=== PATIENT | female | born 1950 ===

== ENCOUNTER 2017-04-20 03:37 | Emergency (ER) | payer MEDICARE, OTHER ==
[2017-04-20] MEDS: LORAZEPAM 2 MG INJ IM (04:06)
[2017-04-20] MEDS: DIPHENHYDRAMINE 50 MG CAP PO (05:38)
== END 2017-04-20 10:00 | disposition home or self-care (01) ==
LOC: E/R 03:37
DX: F41.9 Anxiety disorder, unspecified (principal); F43.20 Adjustment disorder, unspecified
CPT/HCPCS: 93005; 96372; 99284-25

== ENCOUNTER 2017-05-26 22:22 | Emergency (ER) | payer SELFPAY, OTHER, MEDICARE | END 2017-05-27 00:10 | disposition left against medical advice (07) | LOC: FTE 22:22 | DX: Z53.21 Procedure and treatment not carried out due to patient leaving prior to being seen by health care provider (principal) ==

== ENCOUNTER 2017-10-14 22:35 | Emergency (ER) | payer MEDICARE, OTHER ==
[2017-10-14] MEDS: LORAZEPAM 1 MG TAB PO (23:48)
[2017-10-14 23:57] LABS: ADD MAN DIFF? NO
[2017-10-14 23:58] LABS: WHITE BLOOD COUNT 6.5 10^3/ul (4.8-10.8)
[2017-10-14 23:58] LABS: BASOPHILS % 0.5 % (0.0-2.0); EOSINOPHILS # 0.2 10^3/ul (0.0-0.5); EOSINOPHILS % 2.5 % (0.0-7.0); HEMATOCRIT 42.1 % (37.0-47.0); HEMOGLOBIN 14.1 g/dl (12.0-16.0); LYMPHOCYTES # 2.1 10^3/ul (0.8-2.9); LYMPHOCYTES % 31.5 % (15.0-51.0); MEAN CORPUSCULAR HEMOGLOBIN 29.2 pg (29.0-33.0); MEAN CORPUSCULAR HGB CONC 33.5 g/dl (32.0-37.0); MEAN CORPUSCULAR VOLUME 87.2 fl (82.0-101.0); MEAN PLATELET VOLUME 9.9 fl (7.4-10.4); MONOCYTE # 0.5 10^3/ul (0.3-0.9); MONOCYTES % 7.1 % (0.0-11.0); NEUTROPHIL # 3.8 10^3/ul (1.6-7.5); NEUTROPHILS % 58.2 % (39.0-77.0); PLATELET COUNT 177 10^3/UL (140-415); RED BLOOD COUNT 4.83 10^6/ul (4.20-5.40); RED CELL DISTRIBUTION WIDTH 12.2 % (11.5-14.5)
[2017-10-15 00:15] LABS: ALANINE AMINOTRANSFERASE 23 IU/L (13-69); ALBUMIN 4.4 g/dl (3.3-4.9); ALBUMIN/GLOBULIN RATIO 1.29; ALKALINE PHOSPHATASE 98 IU/L (42-121); ANION GAP 13 (8-16); ASPARTATE AMINO TRANSFERASE 18 IU/L (15-46); BILIRUBIN,INDIRECT 0.5 mg/dl (0-1.1); BILIRUBIN,TOTAL 0.5 mg/dl (0.2-1.3); BLOOD UREA NITROGEN 17 mg/dl (7-20); CARBON DIOXIDE 30 mmol/L (21-31); CHLORIDE 103 mmol/L (97-110); CREATININE 0.69 mg/dl (0.44-1.00); GLUCOSE 99 mg/dl (70-220); POTASSIUM 3.6 mmol/L (3.5-5.1); SODIUM 142 mmol/L (135-144); TOTAL PROTEIN 7.8 g/dl (6.1-8.1)
[2017-10-15] MEDS: ACETAMINOPHEN 325 MG TAB PO (00:15)
[2017-10-15 00:27] LABS: B-TYPE NATRIURETIC PEPTIDE 58 PG/ML (0-125); TROPONIN-I < 0.012 ng/ml (0.000-0.120)
== END 2017-10-15 03:09 | disposition home or self-care (01) ==
LOC: FTE 22:35
DX: F41.9 Anxiety disorder, unspecified (principal); R07.9 Chest pain, unspecified
CPT/HCPCS: 36415; 71046; 80053; 83880; 84484; 85025; 93005; 99285-25

== ENCOUNTER 2017-11-05 20:17 | Emergency (ER) | payer MEDICARE, OTHER ==
[2017-11-05] MEDS: HYDROCODONE/APAP (10/325) TAB PO (21:56)
== END 2017-11-05 23:38 | disposition home or self-care (01) ==
LOC: FTE 20:17
DX: S80.01XA Contusion of right knee, initial encounter (principal); W20.8XXA Other cause of strike by thrown, projected or falling object, initial encounter; Y92.512 Supermarket, store or market as the place of occurrence of the external cause
CPT/HCPCS: 29505; 73700; 99284-25